=== PATIENT | male | born 1935 | race African-American/Black ===

== ENCOUNTER 2019-07-03 13:45 | Emergency (ER) | payer OTHER ==
[~2019-07-03] VITALS: Ht 177.8 cm; Wt 80.0 kg
[2019-07-03] MEDS ORDERED: LISI-186 PO (13:58)
[2019-07-03] MEDS ORDERED: ATOR10TA69 PO (13:58)
[2019-07-03] MEDS ORDERED: LORAZEPAM 2MG/ML CPJ IM ONE (15:30)
[2019-07-03 16:13] LABS: BASOPHILS % 0.1 % (0.0-2.0); HEMATOCRIT. 35.2 % (42.0-52.0); HEMOGLOBIN. 11.3 g/dL (14.0-18.0); LYMPHOCYTES % 8.7 % (20.0-50.0); MEAN CORPUSCULAR HEMOGLOBIN 30.5 pg (28.0-32.0); MEAN CORPUSCULAR VOLUME 94.8 fL (80.0-94.0); MEAN PLATELET VOLUME 8.3 fl (7.4-10.4); MONOCYTES % 4.7 % (2.0-8.0); NEUTROPHILS % 85.5 % (40.0-76.0); PLATELET 149 x1000/uL (130-400); RED BLOOD CELL COUNT 3.72 mill/uL (4.7-6.1); RED CELL DISTRIBUTION WIDTH 11.6 % (11.6-14.6)
[2019-07-03 16:15] LABS: CHLORIDE 107 mEq/L (98-107)
[2019-07-03 16:20] LABS: ETHANOL BLOOD < 10 mg/dL
[2019-07-03 20:03] VITALS: BP 142/63
== END 2019-07-03 20:25 | disposition short-term general hospital (02) ==
LOC: ER 13:45 → CANBEDREQ 17:43 → ER 20:25
DX: R55 Syncope and collapse (principal); I95.9 Hypotension, unspecified; R00.1 Bradycardia, unspecified; I11.0 Hypertensive heart disease with heart failure; I50.9 Heart failure, unspecified; E78.00 Pure hypercholesterolemia, unspecified; G30.9 Alzheimer's disease, unspecified; F02.80 Dementia in other diseases classified elsewhere, unspecified severity, without behavioral disturbance, psychotic disturbance, mood disturbance, and anxiety
CPT/HCPCS: 36415; 70450; 71045; 80053; 80320; 83690; 83735; 83880; 84443; 84484; 85025; 93005; 96372; 99285; J2060; G0480

== ENCOUNTER 2021-10-30 17:35 | Emergency (ER) | payer OTHER ==
[~2021-10-30] VITALS: Ht 177.8 cm; Wt 73.0 kg
[~2021-10-30 17:35] MED LIST: ATOR10TA69 PO; LISI-186 PO
[2021-10-30 18:33] LABS: BASOPHILS % 0.1 % (0.0-2.0); EOSINOPHILS % 0.8 % (0.0-5.0); HEMATOCRIT. 42.4 % (42.0-52.0); HEMOGLOBIN. 13.4 g/dL (14.0-18.0); LYMPHOCYTES % 10.7 % (20.0-50.0); MEAN CORPUSCULAR HEMOGLOBIN 30.5 pg (28.0-32.0); MEAN CORPUSCULAR VOLUME 96.3 fL (80.0-94.0); MEAN PLATELET VOLUME 7.7 fl (7.4-10.4); MONOCYTES % 2.7 % (2.0-8.0); NEUTROPHILS % 85.7 % (40.0-76.0); PLATELET 183 x1000/uL (130-400); RED CELL DISTRIBUTION WIDTH 12.2 % (11.6-14.6)
[2021-10-30 18:43] LABS: CHLORIDE 107 mEq/L (98-107)
[2021-10-30] MEDS ORDERED: SODIUM CHLORIDE 0.9% 1,000 ML IV ONE (19:30)
[2021-10-30] MEDS ORDERED: HALOPERIDOL LACTATE 5MG/ML VIAL IM ONE (21:00)
[2021-10-31 00:49] VITALS: BP 153/63
== END 2021-10-31 01:30 | disposition short-term general hospital (02) ==
LOC: ER 17:35
DX: R55 Syncope and collapse (principal); E87.2 Acidosis; E78.00 Pure hypercholesterolemia, unspecified; I10 Essential (primary) hypertension; Z20.822 Contact with and (suspected) exposure to COVID-19; Z98.890 Other specified postprocedural states
CPT/HCPCS: 36415; 70450; 71045; 80053; 83605; 83880; 84145; 84484; 85025; 87040; 87426; 93005; 96360; 96372; 99285; C9803; J1630; J7030